=== PATIENT | male | born 1945 | race Caucasian/White ===

== ENCOUNTER 2022-04-20 19:58 | Emergency (ER) | payer OTHER ==
[~2022-04-20] VITALS: Ht 190.5 cm; Wt 93.0 kg
== END 2022-04-20 23:56 | disposition home or self-care (01) ==
LOC: ER 19:58
DX: S00.93XA Contusion of unspecified part of head, initial encounter (principal); S70.01XA Contusion of right hip, initial encounter; S40.011A Contusion of right shoulder, initial encounter; W19.XXXA Unspecified fall, initial encounter; Y93.89 Activity, other specified; Y92.89 Other specified places as the place of occurrence of the external cause; Y99.9 Unspecified external cause status